=== PATIENT | female | born 1960 | race Asian ===

== ENCOUNTER 2017-07-13 10:44 | Emergency (ER) | payer MEDICAID ==
[~2017-07-13] VITALS: Ht 160 cm; Wt 63.6 kg
[2017-07-13] MEDS ORDERED: LOSA25TA21 PO (10:47)
[2017-07-13] MEDS ORDERED: SIMV-259 PO (10:47)
[2017-07-13 13:05] LABS: INFLUENZA TYPE A NEGATIVE FOR TYPE A (NEGATIVE); INFLUENZA TYPE B NEGATIVE FOR TYPE B (NEGATIVE)
[2017-07-13 13:33] VITALS: BP 146/95
== END 2017-07-13 13:36 | disposition home or self-care (01) ==
LOC: EMS 10:49
DX: J40 Bronchitis, not specified as acute or chronic (principal); I10 Essential (primary) hypertension; E78.00 Pure hypercholesterolemia, unspecified
CPT/HCPCS: 71046; 87804; 99285